=== PATIENT | female | born 1950 | race Caucasian/White ===

== ENCOUNTER 2018-07-01 06:15 | Day surgery (SDC) | payer OTHER ==
[2018-06-28 17:45] VITALS: BMI 37.8
[~2018-07-01 06:15] MED LIST: ACETYLCHOLINE 1:100 INTRA-OCUL 20 MG/2 ML KIT IO ONE; CHONDROITIN SU A/HYALUR SOD 1 KIT IO ONE; EPINEPHrine/PF 1 MG/1 ML (1:1,000) AMPULE SQ ONE; TETRACAINE 0.5% HCL 0.6ML DROPPER.BOTTLE TP ONE; TOBRA 0.3%/DEXAMETH 0.1% OPHTHALMIC SUSP 2.5 ML BTL TP ONE; TRYPAN BLUE 0.5 ML DISP.SYRIN IO ONE
[2018-07-01] MEDS: PHENYLEPHRINE 2.5% OPHTH SOLN 15 ML BOTTLE ONE ×2 (06:40→07:00)
[2018-07-01] MEDS: MOXIFLOXACIN HCL 0.5% OPHTHALMIC 3 ML BOTTLE ONE ×2 (06:40→07:00)
[2018-07-01] MEDS: TROPICAMIDE 1% OPHTH SOLN 15 ML BOTTLE ONE ×2 (06:40→07:00)
[2018-07-01] MEDS: CYCLOPENTOLATE HCL 1% OPHTH SOLN 2 ML BOTTLE ONE ×2 (06:40→06:59)
[2018-07-01] MEDS: DICLOFENAC SODIUM 0.1% OPHTHALMIC 2.5ML BOTTLE ONE ×2 (06:40→07:00)
[2018-07-01 06:43] VITALS: TEMP 98.2
[2018-07-01] MEDS ORDERED: TOBRA 0.3%/DEXAMETH 0.1% OPHTHALMIC SUSP 2.5 ML BTL ONE (07:48)
[2018-07-01] MEDS ORDERED: EPINEPHrine/PF 1 MG/1 ML (1:1,000) AMPULE ONE (07:48)
[2018-07-01] MEDS ORDERED: LIDOCAINE HCL/PF 1% SDV 5ML VIAL ONE (07:48)
[2018-07-01] MEDS ORDERED: TETRACAINE 0.5% OPHTH SOLN 2 ML BOTTLE ONE (07:49)
[2018-07-01] MEDS ORDERED: POVIDONE-IODINE 5% OPHTHALMIC PREP 30 ML SOLUTION ONE (07:49)
[2018-07-01] MEDS ORDERED: TOBRA 0.3%/DEXAMETH 0.1% OPHTHALMIC SUSP 2.5 ML BTL TP ONE (08:12)
[2018-07-01] MEDS ORDERED: MIDAZOLAM HCL 2 MG/2 ML SINGLE DOSE VIAL ONE (08:12)
[2018-07-01] MEDS ORDERED: TETRACAINE 0.5% HCL 0.6ML DROPPER.BOTTLE TP ONE (08:30)
[2018-07-01] MEDS ORDERED: LIDOCAINE HCL 1% PRESERVATIVE FREE - 30ML VIAL IO ONE (08:45)
[2018-07-01] MEDS ORDERED: CHONDROITIN SU A/HYALUR SOD 1 KIT IO ONE (08:45)
[2018-07-01] MEDS ORDERED: EPINEPHrine/PF 1 MG/1 ML (1:1,000) AMPULE SQ ONE (08:48)
[2018-07-01 14:10] VITALS: BP 133/73; PULSE 75
--- NOTE | 2018-07-01 19:22 | OP ---
DATE OF OPERATION: 07/01/2018 SPECIALIST: Skylar Carvalho MD PREOPERATIVE DIAGNOSIS: Cataract, left eye. POSTOPERATIVE DIAGNOSIS: Cataract, left eye. PROCEDURE: Phacoemulsification of cataract, left eye, with in-the-bag placement of AU00T0 18.0 diopter intraocular lens. ANESTHESIA: Local. DESCRIPTION OF PROCEDURE: Patient was brought to the operating room, and the left eye was prepped and draped in the usual sterile fashion for ophthalmic surgery. The microscope was swung into position after placing tetracaine eye drops. The 2.75 keratome was used to enter the anterior chamber at approximately 2 o'clock position with an accessory port made at approximately 5 o'clock position after filling the anterior chamber with 0.5 mL of preservative-free lidocaine and viscoelastic. Cystotome and Utrata forceps were used to make a continuous circular capsulorrhexis with BSS used to perform hydrodissection and hydrodelineation of the lens nucleus which was then rotated freely. Phacoemulsification was carried out in a [id number] technique. The IA was used to remove residual cortical material from the capsular bag which was found to be intact, and an AU00T0 18.0 diopter IOL was injected into the capsular bag, and IA was used to remove residual cortical material and viscoelastic from the capsular bag and the anterior chamber. The cornea lip wounds were hydrated with BSS and were found to be watertight. A contact lens soaked in TobraDex solution for approximately 10 minutes was then draped on the eye. The eye was patched and shielded. The patient was transferred to recovery room in a stable condition, having tolerated the procedure well. Ana [id number]
== END 2018-07-01 10:45 | disposition home or self-care (01) ==
LOC: JASU-SURG 06:15
PROVIDERS: ATTEND Ophthalmology
PROC: 08RK3JZ Replacement of Left Lens with Synthetic Substitute, Percutaneous Approach (ICD-10-PCS; principal; 2018-07-01 08:00)
DX: H26.9 Unspecified cataract (principal); I10 Essential (primary) hypertension; E11.9 Type 2 diabetes mellitus without complications; Z79.84 Long term (current) use of oral hypoglycemic drugs
CPT/HCPCS: 82962

== ENCOUNTER 2020-10-04 11:24 | Inpatient (IN) | payer OTHER ==
[2020-10-04 13:13] LABS: EOS % 1.6 % (0-4.5); HEMATOCRIT 33.2 % (32.4-45.2); HEMOGLOBIN 11.2 GM/dL (10.7-15.3); LYMPH % 30.9 % (8-40); MCHC 33.7 g/dl (32.0-36.0); MEAN CELL VOLUME 89.1 fl (80-96); MEAN PLT VOLUME 8.6 fl (7.5-11.1); MONO % 8.3 % (3.8-10.2); NEUT % 58.2 % (42.8-82.8); PLATELET COUNT 305 K/MM3 (134-434); RBC 3.72 M/mm3 (3.60-5.2); RDW 14.2 % (11.6-15.6); WHITE BLOOD COUNT 10.7 K/mm3 (4.0-10.0)
[2020-10-04] MEDS ORDERED: CLINDAMYCIN 600MG PREMIX IVPB 600 MG/50 ML BAG IVPB ONE ×2 (13:27→13:39)
[2020-10-04 13:46] LABS: CHLORIDE 103 mmol/L (98-107); POTASSIUM 4.5 mmol/L (3.5-5.1); SODIUM 136 mmol/L (136-145)
[2020-10-04 13:48] LABS: ALBUMIN 3.3 g/dl (3.4-5.0); ANION GAP 7 MMOL/L (8-16); BLOOD UREA NITROGEN 20.2 mg/dL (7-18); CO2 26 mmol/L (21-32); GLUCOSE,RANDOM 126 mg/dL (74-106)
[2020-10-04 13:51] LABS: CREATININE 1.1 mg/dL (0.55-1.3); SGOT/AST 11 U/L (15-37); SGPT/ALT 15 U/L (13-61)
[2020-10-04 13:53] LABS: TOT PROT 7.8 g/dl (6.4-8.2)
[2020-10-04 13:54] LABS: ALK PHOS 122 U/L (45-117)
[2020-10-04 13:58] LABS: BILIRUBIN,TOTAL 0.4 mg/dL (0.2-1)
[2020-10-04 14:00] LABS: CALCIUM 9.5 mg/dL (8.5-10.1)
[2020-10-04 14:05] LABS: INR 1.03 (0.83-1.09); PROTHROMBIN TIME (PATIENT) 12.5 SEC (9.7-13.0)
[2020-10-04] MEDS ORDERED: LACTATED RINGERS SOLUTION 1000 ML INFUS.BAG IV ONE (14:07)
[2020-10-04 14:08] LABS: ACTIVATED PTT 30.2 SECONDS (25.2-36.5)
[2020-10-04] MEDS ORDERED: LACTATED RINGERS SOLUTION 1,000 ML/1,000 ML INFUS.BAG IV SCH (15:45)
[2020-10-04] MEDS: INSULIN SLIDING SCALE (NOVOLOG) 1 VIAL SQ SCH ×2 (17:12→22:34)
[2020-10-04] MEDS ORDERED: INSULIN (NOVOLOG) ASPART 100 UNITS/ML 10ML VIAL ONE (21:35)
[2020-10-04] MEDS: METOPROLOL TARTRATE 50 MG TABLET (FP) PO SCH (22:33)
[2020-10-04] MEDS: GABAPENTIN 300 MG CAPSULE PO SCH (22:33)
[2020-10-04 23:39] VITALS: BMI 36.3
[2020-10-05] MEDS: CLINDAMYCIN 600MG PREMIX IVPB 600 MG/50 ML BAG IVPB SCH ×3 (01:31→20:11)
[2020-10-05] MEDS: GABAPENTIN 300 MG CAPSULE PO SCH ×3 (05:51→21:39)
[2020-10-05] MEDS: INSULIN SLIDING SCALE (NOVOLOG) 1 VIAL SQ SCH ×4 (06:03→21:38)
[2020-10-05 08:56] LABS: BASO % 0.8 % (0-2.0); EOS % 2.4 % (0-4.5); HEMATOCRIT 30.5 % (32.4-45.2); HEMOGLOBIN 10.1 GM/dL (10.7-15.3); LYMPH % 34.7 % (8-40); MCH 29.8 pg (25.7-33.7); MCHC 33.2 g/dl (32.0-36.0); MEAN CELL VOLUME 89.8 fl (80-96); MONO % 9.8 % (3.8-10.2); NEUT % 52.3 % (42.8-82.8); PLATELET COUNT 282 K/MM3 (134-434); RBC 3.39 M/mm3 (3.60-5.2); WHITE BLOOD COUNT 8.2 K/mm3 (4.0-10.0)
[2020-10-05 09:25] LABS: POTASSIUM 4.1 mmol/L (3.5-5.1)
[2020-10-05] MEDS: ASPIRIN COATED 81 MG TABLET.EC PO SCH (09:26)
[2020-10-05] MEDS: METOPROLOL TARTRATE 50 MG TABLET (FP) PO SCH ×2 (09:26→21:39)
[2020-10-05] MEDS: SENNOSIDES 8.6MG TABLET (FP) PO SCH (09:26)
[2020-10-05 09:28] LABS: BLOOD UREA NITROGEN 22.3 mg/dL (7-18); CALCIUM 8.6 mg/dL (8.5-10.1)
[2020-10-05 09:31] LABS: MAGNESIUM 1.5 mg/dL (1.8-2.4); PHOSPHOROUS 3.7 mg/dL (2.5-4.9)
[2020-10-05 09:32] LABS: CREATININE 0.9 mg/dL (0.55-1.3)
[2020-10-05] MEDS: ENOXAPARIN NA (PORCINE) 40 MG/0.4 ML DISP.SYRIN SQ SCH (09:41)
[2020-10-05] MEDS ORDERED: DEXTROSE 5%-WATER - 50 ML IVPB ONE (15:10)
[2020-10-05] MEDS ORDERED: cefTRIAXone SODIUM 1 GM VIAL ONE (15:10)
[2020-10-05] MEDS: CEFTRIAXONE 1 GM in DEXTROSE 5%-WATER - 50 ML IVPB SCH (15:21)
[2020-10-05] MEDS ORDERED: INSULIN (NOVOLOG) ASPART 100 UNITS/ML 10ML VIAL ONE (21:32)
[2020-10-06] MEDS: INSULIN SLIDING SCALE (NOVOLOG) 1 VIAL SQ SCH ×4 (06:37→22:10)
[2020-10-06] MEDS: GABAPENTIN 300 MG CAPSULE PO SCH ×3 (06:37→21:38)
[2020-10-06] MEDS: ACETAMINOPHEN 325 MG TABLET (FP) PO PRN ×2 (06:46→21:38)
[2020-10-06 07:23] LABS: BASO % 0.4 % (0-2.0); EOS % 3.4 % (0-4.5); HEMATOCRIT 29.2 % (32.4-45.2); HEMOGLOBIN 9.8 GM/dL (10.7-15.3); LYMPH % 31.3 % (8-40); MCHC 33.3 g/dl (32.0-36.0); MEAN PLT VOLUME 8.7 fl (7.5-11.1); MONO % 10.5 % (3.8-10.2); NEUT % 54.4 % (42.8-82.8); PLATELET COUNT 276 K/MM3 (134-434); RBC 3.25 M/mm3 (3.60-5.2); RDW 14.2 % (11.6-15.6); WHITE BLOOD COUNT 7.6 K/mm3 (4.0-10.0)
[2020-10-06 07:45] LABS: POTASSIUM 4.1 mmol/L (3.5-5.1)
[2020-10-06 07:52] LABS: CALCIUM 8.6 mg/dL (8.5-10.1)
[2020-10-06 07:53] LABS: ALBUMIN 2.9 g/dl (3.4-5.0); BLOOD UREA NITROGEN 20.1 mg/dL (7-18); MAGNESIUM 1.6 mg/dL (1.8-2.4)
[2020-10-06 07:57] LABS: BILIRUBIN,TOTAL 0.5 mg/dL (0.2-1)
[2020-10-06] MEDS ORDERED: cefTRIAXone SODIUM 1 GM VIAL ONE (10:20)
[2020-10-06] MEDS ORDERED: DEXTROSE 5%-WATER - 50 ML IVPB ONE (10:20)
[2020-10-06] MEDS: ENOXAPARIN NA (PORCINE) 40 MG/0.4 ML DISP.SYRIN SQ SCH (10:39)
[2020-10-06] MEDS: ASPIRIN COATED 81 MG TABLET.EC PO SCH (10:39)
[2020-10-06] MEDS: METOPROLOL TARTRATE 50 MG TABLET (FP) PO SCH ×2 (10:39→21:37)
[2020-10-06] MEDS: SENNOSIDES 8.6MG TABLET (FP) PO SCH (10:39)
[2020-10-06] MEDS: CEFTRIAXONE 1 GM in DEXTROSE 5%-WATER - 50 ML IVPB SCH (10:40)
[2020-10-07] MEDS: GABAPENTIN 300 MG CAPSULE PO SCH ×3 (06:03→21:35)
[2020-10-07] MEDS: ACETAMINOPHEN 325 MG TABLET (FP) PO PRN (06:03)
[2020-10-07] MEDS: INSULIN SLIDING SCALE (NOVOLOG) 1 VIAL SQ SCH ×4 (06:04→21:35)
[2020-10-07 07:09] LABS: BASO % 0.7 % (0-2.0); HEMATOCRIT 31.5 % (32.4-45.2); HEMOGLOBIN 10.6 GM/dL (10.7-15.3); LYMPH % 34.6 % (8-40); MCH 30.4 pg (25.7-33.7); MCHC 33.7 g/dl (32.0-36.0); MEAN CELL VOLUME 90.4 fl (80-96); MEAN PLT VOLUME 8.6 fl (7.5-11.1); MONO % 9.4 % (3.8-10.2); NEUT % 51.3 % (42.8-82.8); PLATELET COUNT 285 K/MM3 (134-434); RBC 3.49 M/mm3 (3.60-5.2); WHITE BLOOD COUNT 8.2 K/mm3 (4.0-10.0)
[2020-10-07 08:01] LABS: ALBUMIN 3.1 g/dl (3.4-5.0); BILIRUBIN,TOTAL 0.4 mg/dL (0.2-1); BLOOD UREA NITROGEN 20.9 mg/dL (7-18); CALCIUM 8.5 mg/dL (8.5-10.1); MAGNESIUM 1.7 mg/dL (1.8-2.4); POTASSIUM 4.2 mmol/L (3.5-5.1); TOT PROT 7.4 g/dl (6.4-8.2)
[2020-10-07] MEDS ORDERED: cefTRIAXone SODIUM 1 GM VIAL ONE (08:45)
[2020-10-07] MEDS ORDERED: DEXTROSE 5%-WATER - 50 ML IVPB ONE (08:46)
[2020-10-07] MEDS: CEFTRIAXONE 1 GM in DEXTROSE 5%-WATER - 50 ML IVPB SCH (09:46)
[2020-10-07] MEDS: METOPROLOL TARTRATE 50 MG TABLET (FP) PO SCH ×2 (09:47→21:35)
[2020-10-07] MEDS: ASPIRIN COATED 81 MG TABLET.EC PO SCH (09:47)
[2020-10-07] MEDS: SENNOSIDES 8.6MG TABLET (FP) PO SCH (09:47)
[2020-10-07] MEDS: ENOXAPARIN NA (PORCINE) 40 MG/0.4 ML DISP.SYRIN SQ SCH (09:47)
[2020-10-07] MEDS ORDERED: MAGNESIUM OXIDE 400 MG TABLET (FP) PO ONE ×2 (16:12→16:45)
[2020-10-08] MEDS: GABAPENTIN 300 MG CAPSULE PO SCH ×3 (05:24→21:25)
[2020-10-08] MEDS: INSULIN SLIDING SCALE (NOVOLOG) 1 VIAL SQ SCH ×4 (05:59→21:25)
[2020-10-08 07:50] LABS: BASO % 0.6 % (0-2.0); EOS % 3.3 % (0-4.5); HEMATOCRIT 32.2 % (32.4-45.2); HEMOGLOBIN 10.5 GM/dL (10.7-15.3); LYMPH % 34.3 % (8-40); MCH 29.4 pg (25.7-33.7); MCHC 32.7 g/dl (32.0-36.0); MEAN PLT VOLUME 8.9 fl (7.5-11.1); MONO % 8.5 % (3.8-10.2); NEUT % 53.3 % (42.8-82.8); PLATELET COUNT 307 K/MM3 (134-434); RBC 3.58 M/mm3 (3.60-5.2); RDW 14.1 % (11.6-15.6); WHITE BLOOD COUNT 8.1 K/mm3 (4.0-10.0)
[2020-10-08 08:10] LABS: POTASSIUM 4.4 mmol/L (3.5-5.1)
[2020-10-08 08:17] LABS: ALBUMIN 3.4 g/dl (3.4-5.0); BLOOD UREA NITROGEN 24.6 mg/dL (7-18); CALCIUM 8.9 mg/dL (8.5-10.1)
[2020-10-08 08:22] LABS: BILIRUBIN,TOTAL 0.3 mg/dL (0.2-1); TOT PROT 7.3 g/dl (6.4-8.2)
[2020-10-08] MEDS ORDERED: DEXTROSE 5%-WATER - 50 ML IVPB ONE (09:12)
[2020-10-08] MEDS ORDERED: cefTRIAXone SODIUM 1 GM VIAL ONE (09:12)
[2020-10-08] MEDS: ASPIRIN COATED 81 MG TABLET.EC PO SCH (10:47)
[2020-10-08] MEDS: METOPROLOL TARTRATE 50 MG TABLET (FP) PO SCH ×2 (10:47→21:25)
[2020-10-08] MEDS: SENNOSIDES 8.6MG TABLET (FP) PO SCH (10:47)
[2020-10-08] MEDS: ENOXAPARIN NA (PORCINE) 40 MG/0.4 ML DISP.SYRIN SQ SCH (10:49)
[2020-10-08] MEDS ORDERED: INSULIN (NOVOLOG) ASPART 100 UNITS/ML 10ML VIAL ONE ×2 (12:07→20:52)
[2020-10-08] MEDS: CEFTRIAXONE 1 GM in DEXTROSE 5%-WATER - 50 ML IVPB SCH (16:24)
[2020-10-09] MEDS: GABAPENTIN 300 MG CAPSULE PO SCH ×2 (06:10→14:23)
[2020-10-09] MEDS: INSULIN SLIDING SCALE (NOVOLOG) 1 VIAL SQ SCH ×3 (06:11→17:17)
[2020-10-09 08:21] LABS: BASO % 0.4 % (0-2.0); HEMATOCRIT 31.5 % (32.4-45.2); HEMOGLOBIN 10.5 GM/dL (10.7-15.3); LYMPH % 34.8 % (8-40); MCH 30.1 pg (25.7-33.7); MCHC 33.4 g/dl (32.0-36.0); MEAN CELL VOLUME 90.1 fl (80-96); MEAN PLT VOLUME 9.1 fl (7.5-11.1); MONO % 9.6 % (3.8-10.2); NEUT % 52.2 % (42.8-82.8); PLATELET COUNT 318 K/MM3 (134-434); RDW 13.8 % (11.6-15.6); WHITE BLOOD COUNT 7.9 K/mm3 (4.0-10.0)
[2020-10-09 08:42] LABS: POTASSIUM 4.9 mmol/L (3.5-5.1)
[2020-10-09 08:55] LABS: ALBUMIN 3.2 g/dl (3.4-5.0)
[2020-10-09 09:00] LABS: BILIRUBIN,TOTAL 0.4 mg/dL (0.2-1); TOT PROT 7.6 g/dl (6.4-8.2)
[2020-10-09] MEDS ORDERED: cefTRIAXone SODIUM 1 GM VIAL ONE (09:43)
[2020-10-09] MEDS ORDERED: DEXTROSE 5%-WATER - 50 ML IVPB ONE (09:43)
[2020-10-09] MEDS: ENOXAPARIN NA (PORCINE) 40 MG/0.4 ML DISP.SYRIN SQ SCH (10:10)
[2020-10-09] MEDS: CEFTRIAXONE 1 GM in DEXTROSE 5%-WATER - 50 ML IVPB SCH (10:10)
[2020-10-09] MEDS: METOPROLOL TARTRATE 50 MG TABLET (FP) PO SCH (10:11)
[2020-10-09] MEDS: SENNOSIDES 8.6MG TABLET (FP) PO SCH (10:11)
[2020-10-09] MEDS: ASPIRIN COATED 81 MG TABLET.EC PO SCH (10:11)
[2020-10-09 14:23] VITALS: BP 140/55; PULSE 65; TEMP 98.1
[2020-10-10] MEDS ORDERED: CEFPODOXIME PROXETIL 100 MG TABLET PO SCH (10:00)
== END 2020-10-09 18:36 | disposition home health service (06) | DRG 638 ==
LOC: JER 11:24 → JERBED 12:44 → J7W 19:09
PROVIDERS: ADMIT Internal Medicine; ATTEND Nurse Practitioner Acute Care
DX: E11.621 Type 2 diabetes mellitus with foot ulcer (principal); L97.415 Non-pressure chronic ulcer of right heel and midfoot with muscle involvement without evidence of necrosis; L03.115 Cellulitis of right lower limb; G43.909 Migraine, unspecified, not intractable, without status migrainosus; I10 Essential (primary) hypertension; Z79.84 Long term (current) use of oral hypoglycemic drugs; E66.01 Morbid (severe) obesity due to excess calories; I87.2 Venous insufficiency (chronic) (peripheral); Z68.36 Body mass index [BMI] 36.0-36.9, adult; Z20.822 Contact with and (suspected) exposure to COVID-19
CPT/HCPCS: 36415; 71045-TC-FY; 73630-TC-RT-FY; 73720-TC; 80048; 80053; 82962; 83036; 83605; 83735; 84100; 84443; 84484; 85025; 85610; 85730; 86850; 86900; 86901; 87040; 87070; 87077; 87186; 87205; 93005; 93010; 99285-25; C9803; G0463-25; U0003

== ENCOUNTER 2022-07-14 12:35 | Day surgery (SDC) | payer OTHER ==
[2022-07-14] MEDS ORDERED: DALBAVANCIN HCL 1,500 MG in DEXTROSE 5%-WATER - 500 ML IVPB ONE ×2 (13:00→13:15)
[2022-07-14 13:12] VITALS: BP 129/64; PULSE 58; RESP 18; TEMP 98
== END 2022-07-14 14:30 | disposition home or self-care (01) ==
LOC: FINFUSION 12:35 → FM/S 12:38 → FINFUSION 14:30
PROVIDERS: ATTEND Internal Medicine Infectious Disease
DX: M86.171 Other acute osteomyelitis, right ankle and foot (principal)
CPT/HCPCS: 96365; 96366; 96367; J0875

== ENCOUNTER 2022-07-21 12:27 | Day surgery (SDC) | payer OTHER ==
[2022-07-21] MEDS ORDERED: DALBAVANCIN HCL 1,500 MG in DEXTROSE 5%-WATER - 500 ML IVPB ONE (13:15)
[2022-07-21 15:05] VITALS: BP 147/73; PULSE 67; RESP 18; TEMP 98.8
== END 2022-07-21 15:06 | disposition home or self-care (01) ==
LOC: FINFUSION 12:27 → FM/S 12:31 → FINFUSION 15:06
PROVIDERS: ATTEND Internal Medicine Infectious Disease
DX: M86.171 Other acute osteomyelitis, right ankle and foot (principal)
CPT/HCPCS: 96365; J0875

== ENCOUNTER 2024-09-04 11:28 | Inpatient (IN) | payer OTHER ==
[2024-09-04 11:43] VITALS: BMI 34.4
[2024-09-04 12:39] LABS: BASO % 0.9 % (0-2.0); HEMATOCRIT 41.9 % (32.4-45.2); HEMOGLOBIN 13.8 GM/dL (10.7-15.3); LYMPH % 47.7 % (8-40); MEAN CELL VOLUME 90.9 fl (80-96); MEAN PLT VOLUME 8.4 fl (7.5-11.1); MONO % 9.5 % (3.8-10.2); NEUT % 38.9 % (42.8-82.8); PLATELET COUNT 274 10^3/uL (134-434); RBC 4.61 M/mm3 (3.60-5.2); RDW 13.7 % (11.6-15.6); WHITE BLOOD COUNT 7.7 K/mm3 (4.0-10.0)
[2024-09-04 12:45] LABS: INR 1.03 (0.83-1.09); PROTHROMBIN TIME (PATIENT) 11.2 SEC (9.7-13.0)
[2024-09-04 12:48] LABS: ACTIVATED PTT 28.4 SECONDS (25.2-36.5)
[2024-09-04 12:58] LABS: CHLORIDE 106 mmol/L (98-107); POTASSIUM 3.9 mmol/L (3.5-5.1); SODIUM 139 mmol/L (136-145)
[2024-09-04 13:00] LABS: ALBUMIN 3.7 g/dl (3.4-5.0); ANION GAP 8 mmol/L (4-13); BLOOD UREA NITROGEN 28.9 mg/dL (7-18); CALCIUM 9.7 mg/dL (8.5-10.1); CO2 25 mmol/L (21-32); GLUCOSE,RANDOM 130 mg/dL (74-106)
[2024-09-04 13:03] LABS: SGOT/AST 17 U/L (15-37); SGPT/ALT 19 U/L (13-61)
[2024-09-04 13:04] LABS: CREATININE 1.1 mg/dL (0.55-1.3)
[2024-09-04 13:05] LABS: BILIRUBIN,TOTAL 0.5 mg/dL (0.2-1); TOT PROT 7.9 g/dl (6.4-8.2)
[2024-09-04 13:06] LABS: ALK PHOS 114 U/L (45-117)
[2024-09-04 13:28] LABS: ERYTHROCYTE SEDIMENTATION RATE 42 mm/hr (0-30)
[2024-09-04 13:54] LABS: HIV INTERPRETATION NEGATIVE (NEGATIVE)
[2024-09-05 08:42] LABS: BASO % 0.6 % (0-2.0); EOS % 2.3 % (0-4.5); HEMATOCRIT 40.3 % (32.4-45.2); LYMPH % 43.4 % (8-40); MCH 29.4 pg (25.7-33.7); MCHC 32.1 g/dl (32.0-36.0); MEAN CELL VOLUME 91.6 fl (80-96); MEAN PLT VOLUME 8.8 fl (7.5-11.1); MONO % 10.5 % (3.8-10.2); NEUT % 43.2 % (42.8-82.8); PLATELET COUNT 262 10^3/uL (134-434); RDW 13.2 % (11.6-15.6); WHITE BLOOD COUNT 6.9 K/mm3 (4.0-10.0)
[2024-09-05 09:07] LABS: POTASSIUM 3.8 mmol/L (3.5-5.1)
[2024-09-05 09:16] LABS: ALBUMIN 3.3 g/dl (3.4-5.0); BLOOD UREA NITROGEN 27.2 mg/dL (7-18); CALCIUM 9.2 mg/dL (8.5-10.1); MAGNESIUM 2.1 mg/dL (1.8-2.4)
[2024-09-05 09:19] LABS: CREATININE 1.1 mg/dL (0.55-1.3)
[2024-09-05 09:20] LABS: BILIRUBIN,TOTAL 0.6 mg/dL (0.2-1); TOT PROT 7.2 g/dl (6.4-8.2)
[2024-09-05] MEDS ORDERED: LIDOCAINE HCL 1%, 10 MG/ML (20ML VIAL) ONE (09:28)
[2024-09-05] MEDS ORDERED: BUPIVACAINE HCL/PF 0.5% (5MG/ML) 10 ML VIAL ONE (09:28)
[2024-09-05] MEDS ORDERED: PROPOFOL 20 ML ONE (09:35)
[2024-09-05] MEDS ORDERED: MIDAZOLAM HCL 2 MG/2 ML SINGLE DOSE VIAL ONE (09:35)
[2024-09-05] MEDS ORDERED: ONDANSETRON 4 MG/2 ML VIAL ONE (09:41)
[2024-09-05] MEDS ORDERED: DEXAMETHASONE SOD PHOSPHATE 4 MG/1 ML VIAL ONE (09:41)
[2024-09-05] MEDS ORDERED: KETOROLAC TROMETHAMINE 30 MG/1 ML VIAL ONE (09:41)
[2024-09-05] MEDS ORDERED: LIDOCAINE HCL/PF 2% SDV 5ML VIAL ONE (09:41)
[2024-09-05] MEDS: LIDOCAINE HCL 1%, 10 MG/ML (20ML VIAL) INF ONE (10:01)
[2024-09-05] MEDS ORDERED: ACETAMINOPHEN 325 MG TABLET (FP) PO PRN (13:04)
[2024-09-05] MEDS: GABAPENTIN 300 MG CAPSULE PO SCH (13:37)
[2024-09-05] MEDS: INSULIN ASPART SLIDING SCALE (NOVOLOG) 1 VIAL SQ SCH (16:56)
[2024-09-05] MEDS: ATORVASTATIN CA 40 MG TABLET (FP) PO SCH (21:41)
[2024-09-05] MEDS: LATANOPROST 0.005% OPHTH SOLN 2.5ML BOTTLE OD SCH (21:45)
[2024-09-06] MEDS: sitaGLIPtin PHOSPHATE 50 MG TABLET PO SCH (06:11)
[2024-09-06 09:50] LABS: POTASSIUM 4.1 mmol/L (3.5-5.1)
[2024-09-06 09:56] LABS: BLOOD UREA NITROGEN 36.7 mg/dL (7-18); CALCIUM 9.2 mg/dL (8.5-10.1)
[2024-09-06 09:57] LABS: ALBUMIN 3.3 g/dl (3.4-5.0)
[2024-09-06 10:00] LABS: CREATININE 1.3 mg/dL (0.55-1.3)
[2024-09-06 10:02] LABS: BILIRUBIN,TOTAL 0.5 mg/dL (0.2-1); TOT PROT 7.1 g/dl (6.4-8.2)
[2024-09-06] MEDS: EMPAGLIFLOZIN (JARDIANCE) 25 MG TABLET PO SCH (10:20)
[2024-09-06] MEDS: EZETIMIBE 10 MG TABLET (FP) PO SCH (10:20)
[2024-09-06] MEDS: LOSARTAN POTASSIUM 50 MG TABLET PO SCH (10:21)
[2024-09-06] MEDS: CEFTRIAXONE 2 GM-D5W BAG 2 GM/50 ML BAG IVPB SCH (11:18)
[2024-09-06] MEDS: INSULIN (LEVEMIR) 100 UNITS/ML UNITS SQ SCH (21:11)
[2024-09-07] MEDS: EMPAGLIFLOZIN (JARDIANCE) 25 MG TABLET PO SCH (06:41)
[2024-09-07] MEDS: BRIMONIDINE TARTRATE 0.2% OPHTHALMIC 5 ML BOTTLE OU SCH (16:37)
[2024-09-07] MEDS: DORZOLAMIDE HCL/TIMOLOL OPHTHALMIC SOLUTION 10 ML BOTTLE OU SCH (16:55)
[2024-09-07] MEDS: HEPARIN NA (PORCINE) 5,000 UNITS/ML 1ML VIAL SQ SCH (21:11)
[2024-09-07] MEDS: LATANOPROST 0.005% OPHTH SOLN 2.5ML BOTTLE OU SCH (21:16)
[2024-09-07 22:00] VITALS: RESP 18
[2024-09-07] MEDS ORDERED: PATIENT'S OWN MEDICATION (NON-FORMULARY) (Atorvastatin Ca 40 MG) PO SCH (22:00)
[2024-09-08] MEDS: ASPIRIN 81 MG CHEWABLE TABLETS PO SCH (09:22)
[2024-09-08] MEDS ORDERED: PATIENT'S OWN MEDICATION (NON-FORMULARY) (Jardiance 25 MG) PO SCH (10:00)
[2024-09-10 14:44] VITALS: BP 109/68; PULSE 84; TEMP 98.4
== END 2024-09-10 16:24 | disposition home health service (06) | DRG 629 ==
LOC: JER 11:28 → JERBED 11:52 → OBSVTOIN 15:50 → J8W 16:45
PROVIDERS: ADMIT Family Medicine; ATTEND Family Medicine
PROC: 0QBN3ZX Excision of Right Metatarsal, Percutaneous Approach, Diagnostic (ICD-10-PCS; principal; 2024-09-05 09:30)
PROC: 02HV33Z Insertion of Infusion Device into Superior Vena Cava, Percutaneous Approach (ICD-10-PCS; 2024-09-09)
PROC: B518ZZA Fluoroscopy of Superior Vena Cava, Guidance (ICD-10-PCS; 2024-09-09)
DX: E11.69 Type 2 diabetes mellitus with other specified complication (principal); L97.518 Non-pressure chronic ulcer of other part of right foot with other specified severity; M86.8X7 Other osteomyelitis, ankle and foot; E11.621 Type 2 diabetes mellitus with foot ulcer; I10 Essential (primary) hypertension; G43.909 Migraine, unspecified, not intractable, without status migrainosus; B95.7 Other staphylococcus as the cause of diseases classified elsewhere
CPT/HCPCS: 36415; 36569; 73630-TC-RT-FY; 80053; 82962; 83036; 83735; 85025; 85610; 85651; 85730; 86140; 86850; 86900; 86901; 87040; 87070; 87075; 87186; 87389; 93005; 93010; 93922; 93925-TC; 99285-25; G0378; G0463-25; J1644

== ENCOUNTER 2024-10-08 10:46 | Inpatient (IN) | payer OTHER ==
[2024-10-08] MEDS ORDERED: ACETAMINOPHEN INJECTION 100 ML ONE (12:18)
[2024-10-08] MEDS ORDERED: ONDANSETRON 4 MG/2 ML VIAL ONE (12:19)
[2024-10-08] MEDS ORDERED: FAMOTIDINE 20 MG/50 ML IVPB 20 MG/50 ML MG IVPB ONE (12:19)
[2024-10-08] MEDS: ONDANSETRON 4 MG/2 ML VIAL IVPUSH ONE (12:30)
[2024-10-08] MEDS: ACETAMINOPHEN 1000 MG/100 ML BAG IVPB ONE (12:30)
[2024-10-08] MEDS: FAMOTIDINE 20 MG/50 ML IVPB 20 MG/50 ML MG IVPB ONE (12:30)
[2024-10-08 12:31] LABS: BASO % 0.2 % (0-2.0); EOS % 0.7 % (0-4.5); HEMATOCRIT 38.4 % (32.4-45.2); HEMOGLOBIN 12.6 GM/dL (10.7-15.3); LYMPH % 13.9 % (8-40); MCH 29.6 pg (25.7-33.7); MCHC 32.9 g/dl (32.0-36.0); MEAN CELL VOLUME 90.1 fl (80-96); MEAN PLT VOLUME 7.9 fl (7.5-11.1); MONO % 11.1 % (3.8-10.2); NEUT % 74.1 % (42.8-82.8); PLATELET COUNT 303 10^3/uL (134-434); RBC 4.26 M/mm3 (3.60-5.2); WHITE BLOOD COUNT 14.5 K/mm3 (4.0-10.0)
[2024-10-08 12:37] LABS: INR 1.24 (0.83-1.09); PROTHROMBIN TIME (PATIENT) 13.6 SEC (9.7-13.0)
[2024-10-08 12:40] LABS: ACTIVATED PTT 23.8 SECONDS (25.2-36.5)
[2024-10-08 12:55] LABS: POTASSIUM 4.1 mmol/L (3.5-5.1)
[2024-10-08 12:57] LABS: CALCIUM 8.6 mg/dL (8.5-10.1)
[2024-10-08 12:58] LABS: ALBUMIN 2.5 g/dl (3.4-5.0); BLOOD UREA NITROGEN 15.9 mg/dL (7-18)
[2024-10-08 13:03] LABS: BILIRUBIN,TOTAL 0.4 mg/dL (0.2-1)
[2024-10-08 13:07] LABS: LACTIC ACID 2.1 mmol/L (0.4-2.0)
[2024-10-08] MEDS: SODIUM CHLORIDE 500 ML IV STA (13:31)
[2024-10-08 15:44] LABS: EPI CELLS 34 /uL (0-25.1); HYALINE CASTS 7 /uL (0-3.1); PH,URINE 5.5 (5.0-8.0); URINE APPEARANCE CLEAR; URINE BACTERIA 1 /uL (0-1359); URINE BILIRUBIN NEGATIVE (NEGATIVE); URINE COLOR DK YELLOW; URINE GLUCOSE (UA) 3+ (NEGATIVE); URINE KETONE 2+ (NEGATIVE); URINE LEUK ESTERASE NEGATIVE (NEGATIVE); URINE NITRITE NEGATIVE (NEGATIVE); URINE PROTEIN 2+ (NEGATIVE); URINE RBC 31 /uL (0-23.9); URINE UROBILINOGEN 0.2 mg/dL (0.2-1.0); URINE WBC 23 /uL (0-25.8)
[2024-10-08 16:12] LABS: YEAST FEW (NEGATIVE)
[2024-10-08] MEDS ORDERED: PIPERACILLIN/TAZOB 4.5 GM 4.5 GM/100 ML BAG IVPB ONE (16:18)
[2024-10-08] MEDS: PIPERACILLIN/TAZOB 4.5 GM 4.5 GM/100 ML BAG IVPB ONE (16:36)
[2024-10-08] MEDS ORDERED: VANCOMYCIN 1 GM PREMIX (F) 1 GM/200 ML BAG ONE (16:47)
[2024-10-08] MEDS: VANCOMYCIN 1,000 MG in DEXTROSE 5%-WATER - 250 ML IVPB ONE (17:26)
[2024-10-08] MEDS: SODIUM CHLORIDE 0.9% 1000 ML INFUS.BAG IV ONE (22:30)
[2024-10-09 00:41] VITALS: BMI 29.9
[2024-10-09 08:32] LABS: BASO % 0.2 % (0-2.0); EOS % 0.4 % (0-4.5); HEMATOCRIT 37.8 % (32.4-45.2); HEMOGLOBIN 12.2 GM/dL (10.7-15.3); LYMPH % 9.8 % (8-40); MCH 29.4 pg (25.7-33.7); MCHC 32.2 g/dl (32.0-36.0); MEAN CELL VOLUME 91.3 fl (80-96); MEAN PLT VOLUME 8.1 fl (7.5-11.1); MONO % 10.3 % (3.8-10.2); NEUT % 79.3 % (42.8-82.8); PLATELET COUNT 292 10^3/uL (134-434); RBC 4.15 M/mm3 (3.60-5.2); RDW 13.8 % (11.6-15.6); WHITE BLOOD COUNT 15.7 K/mm3 (4.0-10.0)
[2024-10-09 08:58] LABS: POTASSIUM 3.8 mmol/L (3.5-5.1)
[2024-10-09 09:02] LABS: BLOOD UREA NITROGEN 13.9 mg/dL (7-18)
[2024-10-09 09:05] LABS: CREATININE 0.9 mg/dL (0.55-1.3)
[2024-10-09 09:07] LABS: CALCIUM 8.5 mg/dL (8.5-10.1)
[2024-10-09] MEDS: PIPERACILLIN/TAZOB 3.375 GM 50 ML IVPB SCH (15:15)
[2024-10-09] MEDS: ATORVASTATIN CA 40 MG TABLET (FP) PO SCH (21:14)
[2024-10-09] MEDS: INSULIN ASPART SLIDING SCALE (NOVOLOG) 1 VIAL SQ SCH (22:38)
[2024-10-10] MEDS: ACETAMINOPHEN 500 MG TABLET (FP) PO PRN (03:29)
[2024-10-10 08:22] LABS: BASO % 0.2 % (0-2.0); EOS % 1.1 % (0-4.5); HEMATOCRIT 38.4 % (32.4-45.2); HEMOGLOBIN 12.2 GM/dL (10.7-15.3); LYMPH % 9.8 % (8-40); MCHC 31.8 g/dl (32.0-36.0); MEAN PLT VOLUME 8.1 fl (7.5-11.1); MONO % 10.5 % (3.8-10.2); NEUT % 78.4 % (42.8-82.8); PLATELET COUNT 299 10^3/uL (134-434); RBC 4.22 M/mm3 (3.60-5.2); RDW 14.2 % (11.6-15.6); WHITE BLOOD COUNT 15.3 K/mm3 (4.0-10.0)
[2024-10-10 08:48] LABS: POTASSIUM 3.5 mmol/L (3.5-5.1)
[2024-10-10 08:56] LABS: ALBUMIN 2.2 g/dl (3.4-5.0); BLOOD UREA NITROGEN 12.2 mg/dL (7-18); CALCIUM 8.7 mg/dL (8.5-10.1)
[2024-10-10 09:00] LABS: BILIRUBIN,TOTAL 0.6 mg/dL (0.2-1); CREATININE 0.8 mg/dL (0.55-1.3); TOT PROT 6.2 g/dl (6.4-8.2)
[2024-10-10] MEDS: VANCOMYCIN HCL 125 MG CAPSULE (RESTRICTED TO ID ONLY) PO SCH (14:03)
[2024-10-10] MEDS: LIDOCAINE 5% TOPICAL PATCH TP SCH (14:03)
[2024-10-10] MEDS: LIDOCAINE PATCH REMOVAL MC SCH (21:35)
[2024-10-10] MEDS: INSULIN (LEVEMIR) 100 UNITS/ML UNITS SQ SCH (21:35)
[2024-10-12] MEDS: ONDANSETRON 4 MG/2 ML VIAL IVPUSH ONE (07:10)
[2024-10-12 08:07] LABS: BASO % 0.1 % (0-2.0); EOS % 0.6 % (0-4.5); HEMATOCRIT 37.4 % (32.4-45.2); HEMOGLOBIN 12.3 GM/dL (10.7-15.3); LYMPH % 10.6 % (8-40); MCH 29.5 pg (25.7-33.7); MCHC 32.8 g/dl (32.0-36.0); MEAN CELL VOLUME 89.8 fl (80-96); MEAN PLT VOLUME 8.1 fl (7.5-11.1); MONO % 9.7 % (3.8-10.2); PLATELET COUNT 263 10^3/uL (134-434); RBC 4.17 M/mm3 (3.60-5.2); RDW 14.8 % (11.6-15.6); WHITE BLOOD COUNT 16.8 K/mm3 (4.0-10.0)
[2024-10-12 08:21] LABS: POTASSIUM 4.5 mmol/L (3.5-5.1)
[2024-10-12 08:29] LABS: CALCIUM 8.4 mg/dL (8.5-10.1)
[2024-10-12 08:33] LABS: CREATININE 0.9 mg/dL (0.55-1.3)
[2024-10-12 08:34] LABS: BILIRUBIN,TOTAL 0.7 mg/dL (0.2-1)
[2024-10-12] MEDS: VANCOMYCIN 1 GM PREMIX (F) 1 GM/200 ML BAG IVPB ONE (17:19)
[2024-10-12] MEDS ORDERED: INSULIN ASPART SLIDING SCALE (NOVOLOG) 1 VIAL SQ ONE (18:36)
[2024-10-12] MEDS: ACETAMINOPHEN 1000 MG/100 ML BAG IVPB ONE (23:02)
[2024-10-13 07:49] LABS: HEMOGLOBIN 11.9 GM/dL (10.7-15.3); MCH 29.4 pg (25.7-33.7); MEAN CELL VOLUME 89.1 fl (80-96); MEAN PLT VOLUME 8.1 fl (7.5-11.1); PLATELET COUNT 264 10^3/uL (134-434); RBC 4.04 M/mm3 (3.60-5.2); RDW 14.9 % (11.6-15.6)
[2024-10-13 08:10] LABS: POTASSIUM 3.2 mmol/L (3.5-5.1)
[2024-10-13 08:31] LABS: CALCIUM 8.3 mg/dL (8.5-10.1)
[2024-10-13 08:32] LABS: BLOOD UREA NITROGEN 13.3 mg/dL (7-18)
[2024-10-13 08:35] LABS: CREATININE 0.8 mg/dL (0.55-1.3)
[2024-10-13 08:36] LABS: BILIRUBIN,TOTAL 0.7 mg/dL (0.2-1); TOT PROT 5.7 g/dl (6.4-8.2)
[2024-10-13 08:39] LABS: ANISOCYTOSIS 0; MACROCYTOSIS 0
[2024-10-13] MEDS: POTASSIUM CHLORIDE ORAL LIQUID 20 MEQ/15 ML PO SCH (10:05)
[2024-10-13] MEDS: MELATONIN 5 MG TABLETS PO PRN (21:12)
[2024-10-14 08:41] LABS: HEMATOCRIT 36.1 % (32.4-45.2); HEMOGLOBIN 11.5 GM/dL (10.7-15.3); MCH 29.1 pg (25.7-33.7); MEAN PLT VOLUME 8.3 fl (7.5-11.1); PLATELET COUNT 262 10^3/uL (134-434); RBC 3.97 M/mm3 (3.60-5.2); RDW 14.7 % (11.6-15.6)
[2024-10-14 09:01] LABS: POTASSIUM 3.5 mmol/L (3.5-5.1)
[2024-10-14 09:05] LABS: BLOOD UREA NITROGEN 12.8 mg/dL (7-18); MAGNESIUM 1.5 mg/dL (1.8-2.4)
[2024-10-14 09:09] LABS: CREATININE 0.9 mg/dL (0.55-1.3)
[2024-10-14 09:10] LABS: BILIRUBIN,TOTAL 0.5 mg/dL (0.2-1); TOT PROT 5.8 g/dl (6.4-8.2)
[2024-10-14] MEDS: VANCOMYCIN ORAL SOLUTION 125 MG/2.5 ML PO SCH (12:53)
[2024-10-14] MEDS ORDERED: MAGNESIUM 2GM/50ML STERILE WATER IVPB IVPB ONE (15:00)
[2024-10-14] MEDS: MAGNESIUM 2GM/50ML STERILE WATER IVPB IVPB ONE (17:41)
[2024-10-14] MEDS: NYSTATIN 100000 UNIT/GM TOPICAL OINTMENT 15 GM TUBE TP SCH (21:25)
[2024-10-14] MEDS: VANCOMYCIN HCL 125 MG CAPSULE (RESTRICTED TO ID ONLY) PO SCH (23:59)
[2024-10-15] MEDS: METHYL SALICYLATE/MENTHOL 30 GM TUBE TP PRN (10:06)
[2024-10-15 19:25] VITALS: RESP 20
[2024-10-15 22:36] VITALS: BP 112/69; PULSE 94; TEMP 98.4
== END 2024-10-15 22:55 | disposition home or self-care (01) | DRG 372 ==
LOC: JER 10:46 → JERBED 21:39 → J7W 23:54
PROVIDERS: ADMIT Student in an Organized Health Care Education/Training Program; ATTEND Internal Medicine
DX: A04.72 Enterocolitis due to Clostridium difficile, not specified as recurrent (principal); L97.518 Non-pressure chronic ulcer of other part of right foot with other specified severity; M86.8X7 Other osteomyelitis, ankle and foot; E11.621 Type 2 diabetes mellitus with foot ulcer; E11.69 Type 2 diabetes mellitus with other specified complication; I10 Essential (primary) hypertension; K76.0 Fatty (change of) liver, not elsewhere classified; E78.5 Hyperlipidemia, unspecified; D72.829 Elevated white blood cell count, unspecified; G43.809 Other migraine, not intractable, without status migrainosus; R50.9 Fever, unspecified; K59.00 Constipation, unspecified; E87.6 Hypokalemia
CPT/HCPCS: 0241U-QW; 36415; 71045-TC-FY; 74177-TC; 76705-TC; 80048; 80053; 81003; 82962; 83605; 83690; 83735; 85025; 85027; 85610; 85651; 85730; 86140; 87040; 87045; 87046; 87086; 87324; 87449; 97116-GP; 97161-GP; 99285-25; G0277; G0463-25; J0131; Q9967